=== PATIENT | female | born 2005 | race Caucasian/White ===

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

== ENCOUNTER 2024-05-28 09:45 | Outpatient (CLI) | payer OTHER, SELFPAY | END 2024-05-28 09:46 | disposition home or self-care (01) | LOC: NFLDREF 05-29 02:32 | PROVIDERS: PCP Physician Assistant Medical; Referring Provider Physician Assistant Medical; Visit Provider Physician Assistant Medical | DX: Z00.00 Encounter for general adult medical examination without abnormal findings (principal); F41.9 Anxiety disorder, unspecified; Z30.41 Encounter for surveillance of contraceptive pills; Z11.3 Encounter for screening for infections with a predominantly sexual mode of transmission | CPT/HCPCS: 87491; 87591 ==

== ENCOUNTER 2025-06-03 08:04 | Outpatient (CLI) | payer OTHER, SELFPAY ==
[2025-06-03 15:00] LABS: Chlamydia DNA Amplified* NOT DETECTED (No Detected); GC DNA Amplified* NOT DETECTED (No Detected)
[2025-06-07 18:37] LABS: Pap Test Digital Imaging Done
== END 2025-06-03 08:05 | disposition home or self-care (01) ==
PROVIDERS: PCP Physician Assistant Medical; Visit Provider Nurse Practitioner Family
DX: Z11.3 Encounter for screening for infections with a predominantly sexual mode of transmission (principal); Z12.4 Encounter for screening for malignant neoplasm of cervix; Z13.6 Encounter for screening for cardiovascular disorders
CPT/HCPCS: 80061; 87491; 87591; 87624; 87625; 88141; 88142; 88175